=== PATIENT | female | born 1945 | race Caucasian/White ===

== ENCOUNTER 2019-12-03 08:31 | Emergency (ER) | payer MEDICARE, OTHER ==
[2019-12-03 08:47] VITALS: BP 155/60; PULSE 78; TEMP 98.5; BMI 22.1
--- NOTE | 2019-12-03 08:49 | PDOC ---
History of Present Illness - General Chief Complaint: Pain Stated Complaint: FALL/LFT ELBOW PAIN Time Seen by Provider: 12/03/19 08:39 History Source: Patient Exam Limitations: No Limitations - History of Present Illness Initial Comments: 12/03/19 08:58 74yF w PMHx DM, HTN, HLD, nontoxic multinodular goiter presenting w 3d moderate persistent L elbow pain/warmth/swelling after accidentally hitting it hard on metal chair while housecleaning. Taking tylenol w/o relief, didnt take any today. Denies head trauma, arm numbness/weakness, not on AC. Past History - Medical History Allergies/Adverse Reactions: Allergies Allergy/AdvReac Type Severity Reaction Status Date / Time No Known Allergies Allergy Verified 12/03/19 09:04 COPD: No HTN: Yes Hypercholesterolemia: Yes - Reproductive History Is Patient Now?: No - Psycho-Social/Smoking History Smoking History: Never smoked Have you smoked in the past 12 months: No Information on smoking cessation initiated: No - Substance Abuse Hx (Audit-C & DAST Scrn) How often the patient has a drink containing alcohol: Never Score: In Men: 4 or > Positive; In Women: 3 or > Positive: 0 Screen Result (Pos requires Nsg. Audit-10AR): Negative In the last yr the pt used illegal drug/Rx for NonMed reason: No Score: Yes response is considered Positive: 0 Screen Result (Positive result requires Nsg. DAST-10): Negative Review of Systems - Review of Systems Constitutional: No: Chills, Fever HEENTM: No: Eye Pain, Nose Pain Respiratory: No: Cough, Shortness of Breath Cardiac (ROS): No: Chest Pain, Lightheadedness ABD/GI: No: Nausea, Vomiting : No: Burning, Dysuria Musculoskeletal: Yes: Joint Pain. No: Back Pain Integumentary: No: Bruising, Dryness Neurological: No: Headache, Seizure Psychiatric: No: Anxiety, Depression Endocrine: No: Intolerance to Cold, Intolerance to Heat Hematologic/Lymphatic: No: Anemia, Blood Clots *Physical Exam - Vital Signs Last Vital Signs Temp Pulse Resp BP Pulse Ox 98.5 F 78 18 155/60 97 12/03/19 08:35 12/03/19 08:35 12/03/19 08:35 12/03/19 08:35 12/03/19 08:35 - Physical Exam General Appearance: Yes: Nourished, Appropriately Dressed, Mild Distress HEENT: positive: EOMI, PETER, Normal Voice, Hearing Grossly Normal. negative: Scleral Icterus (R), Scleral Icterus (L) Respiratory/Chest: positive: Lungs Clear, Normal Breath Sounds. negative: Chest Tender, Respiratory Distress Cardiovascular: positive: Regular Rhythm, Regular Rate, S1, S2, Systolic Murmur. negative: Edema Comments:: 2+ radial pulses reynaldo Gastrointestinal/Abdominal: positive: Normal Bowel Sounds, Flat, Soft. negative: Tender, Organomegaly Extremity: positive: Other (L elbow - mild swelling/tenderness/warmth. No skin tears/erythema. Full ROM. Intact thumbs up/ok sign/thumb-5th digit/lumbrical strength. Intact sensation to touch) Integumentary: positive: Normal Color, Warm, Ecchymosis. negative: Dry Neurologic: positive: Fully Oriented, Alert, Normal Mood/Affect, Normal Response, Motor Strength 5/5 (BUE), Respond to painful stimul, Responsive. negative: Numbness, Confused, Disoriented Medical Decision Making - Medical Decision Making 12/03/19 09:00 L elbow XR --- 74yF w PMHx DM, HTN, HLD, nontoxic multinodular goiter presenting w 3d moderate persistent L elbow pain/warmth/swelling after accidentally hitting it hard on metal chair while housecleaning. L arm neurovascular intact No fracture/dislocation on XR Given tylenol, placed in sling DC w ortho f/u, supportive care Discharge - Discharge Information Problems reviewed: Yes Clinical Impression/Diagnosis: Left elbow pain Condition: Good Disposition: HOME - Follow up/Referral Referrals: Obdulio Teran DO [Staff Physician] - - Patient Discharge Instructions Patient Printed Discharge Instructions: DI for Elbow Pain Additional Instructions: There is no evidence of fracture or dislocation on x-ray Take tylenol or ibuprofen if you have pain Please follow up with the referred orthopedic Dr Teran within one week --- No hay evidencia de fractura o dislocacin en la radiografa. [place] tylenol o ibuprofeno si tiene dolor. Cristela un seguimiento con el Dr. Teran ortopdico referido dentro de kuldeep semana - Post Discharge Activity
[2019-12-03] MEDS ORDERED: ACETAMINOPHEN 325 MG TABLET (FP) PO ONE (08:55)
[2019-12-03] MEDS ORDERED: ACETAMINOPHEN 500 MG TABLET (FP) PO ONE (08:55)
[2019-12-03] MEDS ORDERED: ACETAMINOPHEN 325 MG TABLET (FP) ONE (09:11)
[2019-12-03] MEDS ORDERED: KETOROLAC TROMETHAMINE 30 MG/1 ML VIAL IM ONE (09:34)
[2019-12-03] MEDS ORDERED: KETOROLAC TROMETHAMINE 30 MG/1 ML VIAL ONE (09:35)
--- NOTE | 2019-12-03 09:54 | PDOC ---
Documentation entered by Jazmín Stone SCRIBE, acting as scribe for Dada Mckeon MD. Dada Mckeon MD: This documentation has been prepared by the oliviaibe, Jazmín Stone SCRIBE, under my direction and personally reviewed by me in its entirety. I confirm that the documentation accurately reflects all work, treatment, procedures, and medical decision making performed by me. Attending Attestation - Resident Resident Name: Chris Aldana - ED Attending Attestation I have performed the following: I have examined & evaluated the patient, The case was reviewed & discussed with the resident, I agree w/resident's findings & plan, Exceptions are as noted - HPI HPI: 12/03/19 09:44 Agree with resident HPI - Physicial Exam PE: 12/03/19 09:44 GENERAL: Awake, alert, and fully oriented, in no acute distress HEAD: No signs of trauma EYES: PERRLA, EOMI, sclera anicteric, conjunctiva clear ENT: Oropharynx clear without exudates. Moist mucosa NECK: Normal ROM, supple, no lymphadenopathy, JVD, or masses LUNGS: Breath sounds equal, clear to auscultation bilaterally. No wheezes, and no crackles HEART: Regular rate and rhythm, normal S1 and S2, no murmurs, rubs or gallops ABDOMEN: Soft, nontender, normoactive bowel sounds. No guarding, no rebound. No masses EXTREMITIES: L elbow with FROM passive and active, +ttp at olecranon fossa proximally, +mild edema. Mild warmth, no erythema. 5/5 stregnth flexion and extension at elbow and wrist. Able to give thumbs up, okay sign, adduct thumb against resistance. Normal sensation. 2+ radial pulse. Remaining extremities: Normal range of motion, no edema. No clubbing or cyanosis. No cords, erythema, or tenderness NEUROLOGICAL: Normal speech, cranial nerves intact, equal strength and sensation b/l SKIN: Warm, Dry, normal turgor, no rashes or lesions noted. - Medical Decision Making 12/03/19 09:51 74yo F presents to the ED with L elbow pain after striking it accidentally on a chair 3 days ago +ttp and mild edema on exam but NVI. No other injuries Had negative x-ray as outpt UC, was supposed to be referred to ortho but was not given referral info and thus presented to the ED Xr here negative, sling placed for comfort. Pain well controlled. Pt clinically stable for DC home with outpt ortho referral I discussed the physical exam findings, ancillary test results and final diagnoses with the patient. I answered all of the patient's questions. The patient was satisfied with the care received and felt comfortable with the discharge plan and treatment plan. The patient will call their primary care physician within 24 hours to arrange follow-up and will return to the Emergency Department with any new, persistent or worsening symptoms. Discharge - Discharge Information Problems reviewed: Yes Clinical Impression/Diagnosis: Left elbow pain Condition: Good Disposition: HOME - Follow up/Referral Referrals: Obdulio Teran DO [Staff Physician] - - Patient Discharge Instructions Patient Printed Discharge Instructions: DI for Elbow Pain Additional Instructions: There is no evidence of fracture or dislocation on x-ray Take 1000mg tylenol or 600mg ibuprofen every 6 hours and ice your elbow if you have pain Please follow up with the referred orthopedic Dr Teran within one week Return to the emergency department if you have any new, worsening, or concerning symptoms --- No hay evidencia de fractura o dislocacin en la radiografa. [place] 1000 mg de tylenol o 600 mg de ibuprofeno cada 6 horas y aplique hielo en el codo si tiene dolor. Cristela un seguimiento con el Dr. Teran ortopdico referido dentro de kuldeep semana Regrese al departamento de emergencias si tiene algn sntoma nuevo, que empeora o que le preocupa. - Post Discharge Activity
== END 2019-12-03 09:56 | disposition home or self-care (01) ==
LOC: JER 08:31
PROC: 3E0234Z Introduction of Serum, Toxoid and Vaccine into Muscle, Percutaneous Approach (ICD-10-PCS; principal; 2019-12-03)
DX: M25.522 Pain in left elbow (principal)
CPT/HCPCS: 73070-TC-LT-FY; 99284-25